=== PATIENT | female | born 1935 | race Caucasian/White ===

== ENCOUNTER 2018-05-16 23:15 | Observation (INO) ==
[2018-05-16 23:51] LABS: Hematocrit 41.3 % (37.0-47.0); Hemoglobin 13.3 gm/dL (12.5-16.0); Mean Cell Volume 98.8 fl (78-100); Mean Corpuscular Hemoglobin 31.8 pg (27-31); Mean Corpuscular Hgb Conc 32.2 g/dl (32-36); Mean Platelet Volume 10.3 fl (8-12.5); Neutrophil # 6.6 K/mm3 (1.3-6.0); Neutrophil % 65.7 % (42-75.0); Platelet Count 217 K/mm3 (150-450); Red Blood Count 4.18 M/mm3 (4.2-5.4); Red Cell Distribution Width 14.7 % (11.5-14.0)
[2018-05-17 00:03] LABS: Albumin * 3.5 gm/dl (3.4-5.0); Anion Gap 12.4 mmol/L (6.8-13.8); BUN/Creatinine Ratio 14.4 (9.0-21.6); Bilirubin, Total 0.4 mg/dL (0.0-1.1); Calcium * 8.9 mg/dL (7.9-10.9); Carbon Dioxide 32.5 mmol/L (24-32.6); Potassium 3.9 mmol/L (3.4-4.6); Total Protein 7.7 gm/dL (6.2-8.2)
--- NOTE | 2018-05-17 00:05 | ERNOTE ---
Neuro HPI ER Record Date of Service: 05/16/18 Presenting Symptoms: weakness, numbness Time Seen by Provider: 05/16/18 23:23 Source: patient, family Exam Limitations: no limitations Immunizations: IMMUNIZATION HX Immunizations Up to Date Yes History of Influenza Vaccine Yes Hx Pneumococcal Vaccination Yes Allergies/Adverse Reactions: Allergies Allergy/AdvReac Type Severity Reaction Status Date / Time No Known Allergies Allergy Verified 10/30/15 14:04 Home Medications: HOME MEDICATIONS RX: Levothyroxine Sodium [Tirosint] 100 mcg PO DAILY 02/28/14 [Last Taken 09/20/15] RX: Multivitamin [Multi-Vitamin Daily] 1 each PO DAILY 02/28/14 [Last Taken 09/20/15] RX: Lovastatin [Mevacor] 20 mg PO HS 03/04/14 [Last Taken 09/20/15] RX: Ascorbic Acid [Vitamin C] 1,000 mg PO DAILY 04/01/14 [Last Taken 09/20/15] RX: Calcium Carb, Citrate/Vit D3 [Citracal + D ER Tablet] 1 each PO DAILY 04/01/14 [Last Taken 09/20/15] RX: Vitamin B Complex [B Complex] 1 each PO DAILY 04/01/14 [Last Taken 09/20/15] RX: Apixaban [Eliquis] 2.5 mg PO BID 09/21/15 [Last Taken 09/20/15] Potassium Chloride [Klor-Con] 20 meq PO DAILY #30 packet 09/22/15 [Last Taken Unknown] RX: Colchicine 0.6 mg PO BID #28 09/22/15 [Last Taken Unknown] RX: Digoxin [Lanoxin] 0.125 mg PO DAILY #30 tab 09/22/15 [Last Taken Unknown] RX: predniSONE [Prednisone] 1 tab PO BID #30 tab 09/22/15 [Last Taken Unknown] Furosemide [Lasix] 60 mg PO DAILY 10/30/15 [Last Taken Unknown] Metoprolol Tartrate [Lopressor] 50 mg PO DAILY 10/30/15 [Last Taken Unknown] - History of Present Illness Narrative: This patient is an 82-year-old female who is here with right arm numbness and weakness. She said it began about 8 PM, 3.5 hours ago, while she was in bed. She denies headache. She denies visual changes. She has no difficulty speaking or swallowing. She has no numbness or weakness of her legs. She said that she was diagnosed with a stroke 4 years ago. At that time, she had a headache and vomiting. She is uncertain if she has had numbness or weakness. She has atrial fibrillation and is on Eliquis. She ran out of Eliquis 7-10 days ago and has not been able to get a refill. She had carotid ultrasound done 3-4 months ago. She was supposed to have an echocardiogram recently but it was canceled. The previous one was quite a while ago. She denies history of diabetes or hypertension. Review of Systems - Review of Systems Constitutional: Absent: fever EYE: Present: blurred vision, double vision ENT: Present: nasal drainage - she has had cold symptoms for the past 2 weeks. Absent: ear pain, sore throat Respiratory: Present: shortness of breath - she has chronic dyspnea with exertion, cough - she has had cold symptoms for the past 2 weeks Cardiology: Absent: chest pain, palpitations, syncope Gastrointestinal/Abdominal: Absent: nausea, vomiting, diarrhea, constipation, abdominal pain Genitourinary: Absent: frequency, pain, dysuria, hematuria Musculoskeletal: Present: no symptoms reported Skin: Absent: rash Neurological: Present: anxiety, weakness, numbness. Absent: depressed, headache, dizziness/light-headedness Endocrine: Present: no symptoms reported, other - no diabetes Hematologic/Lymphatic: Present: no symptoms reported, other - She is supposed to be on Eliquis but discontinued it 7 to 10 days ago. Psych: Present: anxiety. Absent: depressed Medical History (Last Reviewed 05/17/18 @ 00:02 by Sachin Neil MD) Atrial fib/flutter, transient Stroke Social History: Preferred Language Irish Do you have any restorationism or No cultural preference? Smoking Status Current some day smoker Abuse History No History of abuse Psych History No pertinent hx Alcohol Use none Drug Use none No Social History Section defined Physical Exam - Physical Exam General Appearance: Present: wd/wn, alert, no apparent distress Head Exam: Present: normal inspection, no evidence of injury Eye Exam: Normal inspection: bilateral Ears, Nose, Throat: Present: normal ENT inspection, normal pharynx Neck: Present: normal inspection. Absent: carotid bruit, lymphadenopathy (R), lymphadenopathy (L), thyromegaly Respiratory: Present: no respiratory distress, no accessory muscle use, other - She has some crackles in the bases. Cardiovascular/Chest: Present: no murmur, irregularly irregular Gastrointestinal/Abdominal: Present: normal bowel sounds, nontender, nondistended, soft Back Exam: Present: normal inspection Extremity Exam: Present: normal inspection, non-tender, normal range of motion, no edema Neurological Exam: Present: alert, oriented, normal mood/affect, other - She has no facial asymmetry. She has no drift of the upper extremities. She has good hepatology physician and ankle strength. She says she has decreased sensation of the right upper extremity with light touch. Skin Exam: Present: normal color, warm/dry. Absent: skin rash ED Progress - Date and Time Seen: Date and Time: 05/17/18 00:37 Her right hand symptoms are essentially resolved. 05/17/18 01:38 Dr. Rao was contacted and agrees to keep the patient for observation. - Results and Orders Patient's Lab Results:: I have reviewed the patient's lab results. - Vital Signs Patient's Vital Signs:: I have reviewed the patient's vital signs. Vital Signs: Vital Signs 05/16/18 23:25 Temperature 36.0 C Pulse Rate 71 Respiratory Rate 16 Blood Pressure 161/100 H O2 Sat by Pulse Oximetry 96 - EKG EKG read: Interp. by me EKG Comments: Atrial fibrillation Rate 66 Low QRS voltage Specific ST-T wave changes Similar, but was slower rate, as compared to previous tracing of 01/15/2017 - X-Ray X-Ray #1 X-Ray: chest Interpretation: Interp. by me X-ray Comments: She has cardiomegaly and interstitial fibrosis, similar to prior x-ray. No acut e changes. No infiltrate noted - CT/Ultrasound CT/Ultrasound Narrative: CT BRAIN WITHOUT CONTRAST COMPARISON: None. FINDINGS: No evidence of an acute infarct or intraparenchymal hemorrhage. Chronic small vessel ischemic changes are noted within the supratentorial brain. No extra-axial fluid collection. No fracture. IMPRESSION: 1. No acute disease in the brain. - Progress/Reassessment Chief Complaint: CerebroVascular Accident Departure Clinical Impression: TIA (transient ischemic attack), Atrial fibrillation, Hypertension - Departure Disposition: Still a patient Condition: Stable
[2018-05-17 00:19] LABS: Prothrombin Time (Patient) 11.4 Seconds (9.0-11.0)
[2018-05-17 00:20] LABS: INR 1.14 INR (0.90-1.10); Partial Thrombolplastin Time 26.4 Seconds (24-32)
[2018-05-17] MEDS ORDERED: NON-FORMULARY 1 DOSE DOSE PO ONE (00:28)
[2018-05-17] MEDS ORDERED: APIXABAN 2.5 MG TABLET PO ONE ×3 (00:33→15:13)
[2018-05-17] MEDS ORDERED: DICYCLOMINE HCL 20 MG TABLET PO PRN (11:33)
[2018-05-17] MEDS ORDERED: COLCHICINE 0.6 MG TABLET PO SCH (11:45)
[2018-05-17] MEDS ORDERED: CALCIUM CARBONATE/VITAMIN D3 1 TAB TABLET PO SCH (11:45)
[2018-05-17] MEDS ORDERED: ASCORBIC ACID 500 MG TABLET PO SCH (11:45)
[2018-05-17] MEDS ORDERED: FUROSEMIDE 40 MG TABLET PO SCH (11:45)
[2018-05-17] MEDS ORDERED: DIGOXIN 0.125 MG TABLET PO SCH (11:45)
[2018-05-17] MEDS ORDERED: METOPROLOL TARTRATE 50 MG TABLET PO SCH (11:45)
[2018-05-17] MEDS ORDERED: APIXABAN 2.5 MG TABLET PO SCH ×2 (11:45)
[2018-05-17] MEDS ORDERED: LEVOTHYROXINE SODIUM 88 MCG TABLET PO SCH (11:45)
[2018-05-17] MEDS ORDERED: DULoxetine HCL 30 MG CAPSULE.SA PO SCH (11:45)
--- NOTE | 2018-05-17 15:02 | HP ---
Chief Complaint - Chief Complaint Date of Service: 05/17/18 Time of Service: 14:47 Chief Complaint: I got weakness and numbness in my right arm since last night. History of Present Illness: 82 y/o female with PMHx of Afib, Old CVA, HTN came to ER due to sudden onset numbness and weakness in her Right upper extremity. px reports that she had a stroke 4 years ago and was placed on Eliquis but has not taken the medication in over a week due to failure of her mail service company to send the medication as usual. She said she called them, and they said they'd send it but it never came. Px denies trouble with speech, dizziness, headache, or any other neurological deficit. Medical History (Last Updated 05/17/18 @ 01:58 by Kylee Vidal RN) Hypertension Hypothyroid Atrial fib/flutter, transient Stroke Surgical History: Surgical History (Last Updated 05/17/18 @ 02:01 by Kylee Vidal RN) History of back surgery Right arm fracture broke in 3 places, surgical fix Family History: Family History (Last Updated 05/17/18 @ 02:01 by Kylee Vidal RN) Other Unknown family medical history Social History: Patient Lives/Resources Home Utilized Preferred Language Estonian Do you have any tenriism or No cultural preference? Smoking Status Current every day smoker Have you smoked in the past 12 Yes months Abuse History No History of abuse Psych History No pertinent hx Alcohol Use none Drug Use none No Social History Section defined Peds Patient Hx - Developmental: No Pertinent Hx Peds Patient Hx - Medical: No Pertinent Hx Peds Patient Hx - Cardiac/Respiratory: No Pertinent Hx Peds Patient Hx - Surgical: No Surgical History Patient History - Cancer: No Hx of Cancer Review Of Systems (GEN) - Review of Systems Generalized/Overall Review: Present: Weakness EENTM: Present: No Symptoms Reported Respiratory: Present: No Symptoms Reported Cardiac: Present: No Symptoms Reported Abdominal: Present: No Symptoms Reported Genitourinary: Present: No Symptoms Reported Musculoskeletal: Present: No Symptoms Reported Neurological: Present: Numbness, Weakness - Right upper extremity. Skin: Present: No Symptoms Reported Endocrine: Present: No Symptoms Reported Immunizations: IMMUNIZATION HX Immunizations Up to Date Yes History of Influenza Vaccine Yes Hx Pneumococcal Vaccination Yes Allergies/Adverse Reactions: Allergies Allergy/AdvReac Type Severity Reaction Status Date / Time No Known Allergies Allergy Verified 04/11/16 14:04 Home Medications: HOME MEDICATIONS Levothyroxine Sodium [Tirosint] 88 mcg PO DAILY 02/28/14 [Last Taken 09/20/15] Multivitamin [Multi-Vitamin Daily] 1 each PO DAILY 02/28/14 [Last Taken 09/20/15] Lovastatin [Mevacor] 20 mg PO HS 03/04/14 [Last Taken 09/20/15] Ascorbic Acid [Vitamin C] 1,000 mg PO DAILY 04/01/14 [Last Taken 09/20/15] Calcium Carb, Citrate/Vit D3 [Citracal + D ER Tablet] 1 each PO DAILY 04/01/14 [Last Taken 09/20/15] Vitamin B Complex [B Complex] 1 each PO DAILY 04/01/14 [Last Taken 09/20/15] Apixaban [Eliquis] 2.5 mg PO BID 09/21/15 [Last Taken 09/20/15] Digoxin [Lanoxin] 0.125 mg PO DAILY #30 tab 09/22/15 [Last Taken Unknown] Potassium Chloride [Klor-Con] 20 meq PO DAILY #30 packet 09/22/15 [Last Taken Unknown] Furosemide [Lasix] 60 mg PO TUTH 10/30/15 [Last Taken Unknown] Metoprolol Tartrate [Lopressor] 50 mg PO BID 10/30/15 [Last Taken Unknown] Colchicine 0.6 mg PO DAILY 05/17/18 [Last Taken Unknown] DULoxetine HCL [Cymbalta] 30 mg PO DAILY 05/17/18 [Last Taken Unknown] Dicyclomine HCl [Bentyl] 20 mg PO QID PRN 05/17/18 [Last Taken Unknown] Furosemide [Lasix] 40 mg PO SUMOWEFRSA 05/17/18 [Last Taken Unknown] traZODone HCL [Trazodone HCl] 50 mg PO HS 05/17/18 [Last Taken Unknown] Exam - Exam Vital Signs: Vital Signs - Last Taken Temp 36.5 C 05/17/18 10:21 Pulse 61 05/17/18 13:13 Resp 12 05/17/18 10:21 BP 137/96 H 05/17/18 13:13 Pulse Ox 98 05/17/18 10:21 Constitutional: Present: Alert, Oriented x3, Cooperative, Well developed, Well nourished, No distress ENT Exam: Present: normal ENT inspection, hearing grossly normal, pharynx normal, TMs normal Eye Exam: bilateral eye: normal inspection, PERRL, EOMI Neck: Present: non-tender, full range of motion, supple, normal inspection, trachea midline Back Exam: Present: normal inspection, no CVA tenderness, no vertebral tenderness Breasts: Present: Exam deferred Respiratory: Present: chest non-tender, lungs clear, normal breath sounds, no respiratory distress Cardiovascular/Chest: Present: normal peripheral pulses, no chest tenderness, no edema, no gallop, no JVD, no murmur, irregularly irregular Peripheral Pulses: carotid (R): 3+, carotid (L): 3+, femoral (R): 3+, femoral (L): 3+, dorsalis-pedis (R): 3+, dorsalis-pedis (L): 3+ Abdomen: Present: Normal bowel sounds, soft, nontender, nondistended, no rebound tenderness, no hepatospenomegaly, no masses /Rectal: Present: Exam deferred Extremity: Present: normal range of motion, non-tender, normal inspection, no pedal edema, no calf tenderness Skin Exam: Present: normal color, warm/dry, no cyanosis Lymphatic: Present: no adenopathy Neurologic: Present: automobile 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 II-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 nml as tested, normal cerebellar test, alert, normal mood/affect, oriented x 3, motor weakness - Right upper extremity Appearance: Present: appropriate appearance, appropriate insight, neat, no memory impairment Eye contact: Present: cooperative, good eye contact, normal speech Thoughts: Present: normal thought pattern, no apparent hallucination Diagnostic Studies: Abnormal Lab Results 05/16/18 05/16/18 05/16/18 Range/Units 23:50 23:50 23:50 RBC 4.18 L (4.2-5.4) M/mm3 MCH 31.8 H (27-31) pg RDW 14.7 H (11.5-14.0) % Immature Gran # (Auto) 0.04 H (0.000-0.0310) K/mm3 Monocytes % 10.3 H (0.0-9) % Neutrophils # 6.6 H (1.3-6.0) K/mm3 PT 11.4 H (9.0-11.0) Seconds INR (Anticoag Therapy) 1.14 H (0.90-1.10) INR Est GFR (Non-Af Amer) 54 L (60-130) mL/min Laboratory Results WBC 10.0 K/mm3 (4.0-10.5) 05/16/18 23:50 RBC 4.18 M/mm3 (4.2-5.4) L 05/16/18 23:50 Hgb 13.3 gm/dL (12.5-16.0) 05/16/18 23:50 Hct 41.3 % (37.0-47.0) 05/16/18 23:50 MCV 98.8 fl (78-100) 05/16/18 23:50 MCH 31.8 pg (27-31) H 05/16/18 23:50 MCHC 32.2 g/dl (32-36) 05/16/18 23:50 RDW 14.7 % (11.5-14.0) H 05/16/18 23:50 Plt Count 217 K/mm3 (150-450) 05/16/18 23:50 MPV 10.3 fl (8-12.5) 05/16/18 23:50 Immature Gran % (Auto) 0.40 % (0.001-0.429) 05/16/18 23:50 Immature Gran # (Auto) 0.04 K/mm3 (0.000-0.0310) H 05/16/18 23:50 Neutrophils % 65.7 % (42-75.0) 05/16/18 23:50 Lymphocytes % 21.4 % (20-51) 05/16/18 23:50 Monocytes % 10.3 % (0.0-9) H 05/16/18 23:50 Eosinophils % 1.8 % (0.0-3.0) 05/16/18 23:50 Basophils % 0.4 % (0.0-1.0) 05/16/18 23:50 Nucleated RBC % 0.0 k/mm3 (0-1) 05/16/18 23:50 Neutrophils # 6.6 K/mm3 (1.3-6.0) H 05/16/18 23:50 Lymphocytes # 2.14 k/mm3 (1.5-3.5) 05/16/18 23:50 Monocytes # 1.0 k/mm3 (0.0-1.0) 05/16/18 23:50 Eosinophils # 0.2 k/mm3 (0.0-0.7) 05/16/18 23:50 Absolute Basophils 0.0 k/mm3 (0.0-0.1) 05/16/18 23:50 PT 11.4 Seconds (9.0-11.0) H 05/16/18 23:50 INR (Anticoag Therapy) 1.14 INR (0.90-1.10) H 05/16/18 23:50 PTT ([place]) 26.4 Seconds (24-32) 05/16/18 23:50 Sodium 138 mmol/L (132-142) 05/16/18 23:50 Plasma Sodium 138 mmol/L (130-142) 05/16/18 23:50 Potassium 3.9 mmol/L (3.4-4.6) 05/16/18 23:50 Chloride 97 mmol/L (97-106) 05/16/18 23:50 Carbon Dioxide 32.5 mmol/L (24-32.6) 05/16/18 23:50 Anion Gap 12.4 mmol/L (6.8-13.8) 05/16/18 23:50 BUN 15 mg/dL (3-23) 05/16/18 23:50 Creatinine 1.04 mg/dL (0.4-1.4) 05/16/18 23:50 Est GFR (Non-Af Amer) 54 mL/min (60-130) L 05/16/18 23:50 BUN/Creatinine Ratio 14.4 (9.0-21.6) 05/16/18 23:50 Random Glucose 93 mg/dL (70-110) 05/16/18 23:50 Calcium 8.9 mg/dL (7.9-10.9) 05/16/18 23:50 Calcium Adj for Albumin 9.0 mg/dL (8.4-10.2) 05/16/18 23:50 Total Bilirubin 0.4 mg/dL (0.0-1.1) 05/16/18 23:50 AST 29 U/L (0-48) 05/16/18 23:50 ALT 24 U/L (19-67) 05/16/18 23:50 Alkaline Phosphatase 84 U/L (50-170) 05/16/18 23:50 Total Protein 7.7 gm/dL (6.2-8.2) 05/16/18 23:50 Albumin 3.5 gm/dl (3.4-5.0) 05/16/18 23:50 Assessment/Plan - Narrative Narrative: Px was admitted to outpatient observation for TIA, and will be restarted on her Xarelto. Head Ct w/o contrast ruled out any acute pathology and patient's strength has returned in the right upper extremity and numbness has resolved. - Procedures Results: Head Ct negative. - Assessment/Plan (1) TIA (transient ischemic attack) Problem: Acute
--- NOTE | 2018-05-17 15:17 | DS ---
(1) TIA (transient ischemic attack) Problem: Resolved (2) Atrial fibrillation Problem: Chronic Qualifiers: Description of Stay: Renee was admitted to outpx observation for TIA. Head Ct was negative for any acute pathology. Px's symptoms have resolved completely and she reports feeling better. She is being discharged with a prescription for he usual Eliquis and instruction to follow up with her PCP. Procedures Performed: none Results and Findings: Lab Pending Results 05/16/18 23:50: WBC 10.0, RBC 4.18 L, Hgb 13.3, Hct 41.3, MCV 98.8, MCH 31.8 H, MCHC 32.2, RDW 14.7 H, Plt Count 217, MPV 10.3, Immature Gran % (Auto) 0.40, Immature Gran # (Auto) 0.04 H, Neutrophils % 65.7, Lymphocytes % 21.4, Monocytes % 10.3 H, Eosinophils % 1.8, Basophils % 0.4, Nucleated RBC % 0.0, Neutrophils # 6.6 H, Lymphocytes # 2.14, Monocytes # 1.0, Eosinophils # 0.2, Absolute Basophils 0.0 05/16/18 23:50: PT 11.4 H, INR (Anticoag Therapy) 1.14 H, PTT ([place]) 26.4 05/16/18 23:50: Sodium 138, Plasma Sodium 138, Potassium 3.9, Chloride 97, Carbon Dioxide 32.5, Anion Gap 12.4, BUN 15, Creatinine 1.04, Est GFR (Non-Af Amer) 54 L, BUN/Creatinine Ratio 14.4, Random Glucose 93, Calcium 8.9, Calcium Adj for Albumin 9.0, Total Bilirubin 0.4, AST 29, ALT 24, Alkaline Phosphatase 84, Total Protein 7.7, Albumin 3.5 Discharge Location: Home Disposition: Home self-care Condition: Good Face to Face Encounter completed per [facility] Guidelines: No Discharge Activity: Activity as tolerated Discharge Diet: General/regular food Referrals: Philip Waller DO [Primary Care Provider] - Prescriptions (Any new or edited meds): Apixaban [Eliquis] 2.5 mg PO BID 30 Days #60 tablet Complete Home Medications List: Complete Home Medication List: Levothyroxine Sodium [Tirosint] 88 mcg PO DAILY 02/28/14 Multivitamin [Multi-Vitamin Daily] 1 each PO DAILY 02/28/14 Lovastatin [Mevacor] 20 mg PO HS 03/04/14 Ascorbic Acid [Vitamin C] 1,000 mg PO DAILY 04/01/14 Calcium Carb, Citrate/Vit D3 [Citracal + D ER Tablet] 1 each PO DAILY 04/01/14 Vitamin B Complex [B Complex] 1 each PO DAILY 04/01/14 Apixaban [Eliquis] 2.5 mg PO BID 09/21/15 Digoxin [Lanoxin] 0.125 mg PO DAILY #30 tab 09/22/15 Potassium Chloride [Klor-Con] 20 meq PO DAILY #30 packet 09/22/15 Furosemide [Lasix] 60 mg PO TUTH 10/30/15 Metoprolol Tartrate [Lopressor] 50 mg PO BID 10/30/15 Apixaban [Eliquis] 2.5 mg PO BID 30 Days #60 tablet 05/17/18 Colchicine 0.6 mg PO DAILY 05/17/18 DULoxetine HCL [Cymbalta] 30 mg PO DAILY 05/17/18 Dicyclomine HCl [Bentyl] 20 mg PO QID PRN 05/17/18 Furosemide [Lasix] 40 mg PO SUMOWEFRSA 05/17/18 traZODone HCL [Trazodone HCl] 50 mg PO HS 05/17/18
[2018-05-17 15:41] VITALS: BP 114/75
[2018-05-17] MEDS ORDERED: SIMVASTATIN 10 MG TABLET PO SCH (21:00)
[2018-05-19] MEDS ORDERED: FUROSEMIDE 20 MG TABLET PO SCH (09:00)
== END 2018-05-17 16:10 | disposition home or self-care (01) ==
LOC: MS 23:15 → ER 23:15
PROVIDERS: ADMIT Family Medicine; ATTEND Family Medicine
DX: G45.9 Transient cerebral ischemic attack, unspecified; I10 Essential (primary) hypertension; E03.9 Hypothyroidism, unspecified; I48.2 Chronic atrial fibrillation; F17.210 Nicotine dependence, cigarettes, uncomplicated; Z79.01 Long term (current) use of anticoagulants
CPT/HCPCS: 36415; 70450; 71010; 71045; 80053; 85025; 85610; 85730; 93005; 99285; G0378